=== PATIENT | female | born 1970 | race Caucasian/White ===

== ENCOUNTER 2017-02-17 21:20 | Emergency (ER) ==
[2017-02-17 21:37] VITALS: BP 155/78; TEMP 98.7; BMI 34.7
[2017-02-17] MEDS ORDERED: DEXTROSE 5%-NS IV SOLUTION 1,000 ML IV STA (21:47)
--- NOTE | 2017-02-18 01:39 | ED.PDOC ---
General ED Provider: Dr. RAMA JORDAN-ER Chief Complaint: Diabetes Stated Complaint: i took too much insulin Time Seen by Physician: 21:25 Mode of Arrival: Walk-In Information Source: Patient Exam Limitations: No limitations Primary Care Provider: RAMA JORDAN Nursing and Triage Documentation Reviewed and Agree: Yes Endocrine Complaint Exam - Diabetic Complication Complaint/Exam Onset/Duration: just now Symptoms Are: Resolved Initial Severity: Mild Current Severity: None Character: Alert Aggravating: Reports: None Alleviating: Reports: None Associated Signs and Symptoms: Denies: Decreased LOC, Polydipsia, Polyuria, Polyphagia, Weight loss, Abdominal pain, Nausea, Vomiting, Fever, Diaphoresis, Fruity breath Related History: Reports: DM 2, Insulin requiring, Controlled Cardiac Risk Factors: Reports: DM, Hypertension, Elevated lipids CVA Risk Factors: Reports: DM, Hypertension Serious Bacterial Infection Risk Factors: Reports: None Acetone on Breath: No Dry Mucous Membranes: No Kussmaul Respirations: No Glascow Coma Scale (see protocol): 15 Meningeal Signs: No Focal Weakness: None Focal Sensory Loss: None Gait: Normal Nystagmus Present: No Gag Reflex Present: Yes Finger to Nose: Normal Romberg Test Positive: No Babinski Sign: Negative Right, Negative Left Heel to Toe Normal: Yes Differential Diagnoses: Hypoglycemia Review of Systems - Review Of Systems Constitutional: Reports: No symptoms Eyes: Reports: No symptoms Ears, Nose, Mouth, Throat: Reports: No symptoms Respiratory: Reports: No symptoms Cardiac: Reports: No symptoms GI: Reports: No symptoms : Reports: No symptoms Musculoskeletal: Reports: No symptoms Skin: Reports: No symptoms Neurological: Reports: No symptoms Endocrine: Reports: No symptoms Hematologic/Lymphatic: Reports: No symptoms All Other Systems: Reviewed and Negative Past Medical History - Past Medical History Previously Healthy: Yes Endocrine: Reports: DM 2 Cardiovascular: Reports: Hypertension Respiratory: Reports: None Hematological: Reports: None Gastrointestinal: Reports: None Genitourinary: Reports: None Neuro/Psych: Reports: None Musculoskeletal: Reports: None Cancer: Reports: None Last Menstrual Period: PRESENTLY - Surgical History General Surgical History: Reports: Tubal ligation, Cholecystectomy - Family History Family History: Reports: Unknown - Social History Smoking Status: Current every day smoker, Heavy tobacco smoker Hx Substance Use: No Alcohol Screening: None - Immunizations Tetanus Shot up to Date: Yes Physical Exam - Physical Exam Appearance: Well-appearing, No pain distress, Well-nourished Eyes: SHRAVAN, EOMI, Conjunctiva clear ENT: Ears normal, Nose normal, Oropharynx normal Neck: Supple Respiratory: Airway patent, Breath sounds clear, Breath sounds equal, Respirations nonlabored Cardiovascular: RRR, Pulses normal, No rub, No murmur GI/: Soft, Nontender, No masses, Bowel sounds normal, No Organomegaly Musculoskeletal: Normal strength, ROM intact, No edema, No calf tenderness Skin: Warm Neurological: Sensation intact, Motor intact, Reflexes intact, Cranial nerves intact, Alert, Oriented Psychiatric: Affect appropriate, Mood appropriate Re-Evaluation - Re-Evaluation Time of Re-Evaluation: 01:39 Status: Unchanged Vital Signs Stable: Yes Pain Level: o Appearance: NAD Lungs: Clear Skin: Warm and Dry Neuro: Alert and Oriented X3 CV: RRR Additional Comments: fsbs remain stable Critical Care Note - Critical Care Note Total Time (mins): 0 Course - Course Orders, Labs, Meds: Orders Category Date Time Status ACCUCHECK (ED) [ED ACCUCHECK ASSESSMENT] Q1HR EMERGENCY 02/17/17 21:47 Active IV [ED IV/MEDIPORT/POWERPORT] .ONCE EMERGENCY 02/17/17 21:55 Active 0.9 % Sodium Chloride [Saline Flush] MEDS 02/17/17 21:55 Ordered 1 syr IVF PRN PRN Dextrose 5 % and 0.9 % NaCl [Dextrose 5%-Ns IV Solution MEDS 02/17/17 21:47 Active ] 1,000 ml IV 100 mls/hr Medications Generic Name Dose Route Start Last Admin Trade Name Freq PRN Reason Stop Dose Admin Dextrose/Sodium Chloride 1,000 mls @ 100 mls/hr 02/17/17 21:47 02/17/17 21:56 Dextrose 5%-Ns Iv Solution IV 02/18/17 07:46 100 mls/hr .Q10H STA Administration Sodium Chloride 1 syr 02/17/17 21:55 02/17/17 21:58 Saline Flush IVF 1 syr PRN PRN Administration To flush IV Vital Signs: Temp Pulse Resp BP Pulse Ox 02/17/17 21:21 98.7 F 111 H 20 155/78 H 97 Departure - Departure Time of Disposition: 01:40 Disposition: HOME SELF-CARE Discharge Problem: Hypoglycemia Instructions: Hypoglycemia in a Person with Diabetes (ED) Condition: Good Pt referred to PMD for follow-up: Yes Additional Instructions: continhue to monitor bs and call if any problmes Allergies/Adverse Reactions: Allergies No Known Allergies Allergy (Verified 02/17/17 21:35) Home Medications: Ambulatory Orders Gabapentin 200 mg PO TID 01/17/14 Insulin Glargine,Hum.rec.anlog [Lantus] 50 units SQ BID 01/17/14 Etodolac [Lodine] 400 mg PO BID 02/16/14 Carvedilol [Coreg] 3.125 mg PO BID 09/23/15 Hydrocodone Bit/Acetaminophen [[place] 7.5-325] 1 tab PO TID 09/23/15 Lisinopril 10 mg PO DAILY 09/23/15 Sertraline HCl [Zoloft] 100 mg PO DAILY 09/23/15 Alprazolam [Xanax] 1 mg PO DAILY 02/17/17 Insulin Regular, Human [Humulin R] 1 unit SQ DIRECTED 02/17/17 Disposition Discussed With: Patient, Family
== END 2017-02-18 01:51 | disposition home or self-care (01) ==
LOC: ED 21:20
DX: E09.649 Drug or chemical induced diabetes mellitus with hypoglycemia without coma (principal); Z79.4 Long term (current) use of insulin; I10 Essential (primary) hypertension; E78.5 Hyperlipidemia, unspecified; F17.210 Nicotine dependence, cigarettes, uncomplicated
CPT/HCPCS: 82962; 96360; 96361; 99283

== ENCOUNTER 2018-02-02 11:59 | Outpatient (CLI) | END 2018-02-02 12:00 | disposition short-term general hospital (02) | LOC: AMBL 11:59 | PROVIDERS: ATTEND Internal Medicine | DX: R07.9 Chest pain, unspecified (principal); R11.0 Nausea ==

== ENCOUNTER 2018-03-03 23:05 | Emergency (ER) ==
[2018-03-03 23:21] VITALS: BMI 37.0
[2018-03-03] MEDS ORDERED: SODIUM CHLORIDE 1,000 ML IV STA (23:57)
[2018-03-04 00:46] VITALS: BP 110/71; TEMP 98.1
[2018-03-04] MEDS ORDERED: NORCO 7.5-325 PO STA (01:28)
--- NOTE | 2018-03-04 02:01 | CT ---
EXAM: CT scan cervical spine HISTORY: Fall COMPARISON: None. FINDINGS: Contiguous axial images obtained through the cervical spine utilizing 2-mm collimation. S agittal and coronal reconstructions were imaged and reviewed.. There is loss of the normal cervical lordosis suggesting paraspinal muscle spasm. The vertebral bodies are normal in height alignment. T he facet joints are intact. There is no acute fracture or dislocation. IMPRESSION: Loss of the normal cervical lordosis suggesting paraspinal muscle spasm. No acute findings
--- NOTE | 2018-03-04 02:03 | CT ---
EXAM: CT scan facial bones HISTORY: Trauma COMPARISON: None. FINDINGS: Contiguous axial images obtained through the facial bones without contrast utilizing 3-mm collimation. Sagittal and coronal reconstructions were imaged reviewed.. There is left frontal scalp swelling. The orbital structures are intact. Visualized paranasal sinuses are clear. There is dev iation of the nasal septum to the right of midline.. The mandible and maxilla are edentulous. There is no evidence of a mandibular fracture. IMPRESSION: Mild left frontal scalp swelling. No acute findings.
--- NOTE | 2018-03-04 02:04 | CT ---
EXAM: CT head without contrast. HISTORY: Trauma. PROCEDURE: Contiguous axial CT images of the head without contrast with coronal and sagittal reforma ts. FINDINGS: There is an acute right parietal epidural hematoma measuring up to 5 mm transverse. The fabiola tricles and basal cisterns are normal in size and configuration. No evidence of mass or midline shif t. No evidence of large vessel infarct. The paranasal sinuses and mastoid air cells are well-aerate d and normal in appearance. No skull fracture. Impression: Right parietal epidural hematoma measuring up to 5 mm transverse. Recommend stat neurosu rgical consult. Critical result: Results discussed with the patient's ER physician Dr. Diaz on 03/04/2018 at 1:56 a.m.
--- NOTE | 2018-03-04 02:05 | ED.PDOC ---
General ED Provider: Dr. RAMA JORDAN-ER Chief Complaint: Fall Stated Complaint: i fell 2 days ago Time Seen by Physician: 23:10 Mode of Arrival: Wheelchair Information Source: Patient Exam Limitations: No limitations Primary Care Provider: RAMA JORDAN Nursing and Triage Documentation Reviewed and Agree: Yes Reviewed sepsis parameters & appropriate labs ordered?: Yes System Inflammatory Response Syndrome: Not Applicable Sepsis Protocol: For patient's 13 years and over: Temp is 96.8 and below OR 101 and greater Pulse >90 BPM Resp >20/minute Acutely Altered Mental Status Are patient's symptoms suggestive of a new infection, such as: -Pneumonia -Skin, Soft Tissue -Endocarditis -UTI -Bone, Joint Infection -Implantable Device -Acute Abdominal Infection -Wound Infection -Meningitis -Blood Stream Catheter Infection -Unknown Trauma/Injury Complaint Exam - Trauma Complaint/Exam Location of Pain or Injury: Reports: Head, LUE Mechanism of Injury: Reports: Fall Symptoms Are: Still present Timing of Treatment: Immediate Initial Severity: Mild Current Severity: Mild Character: Reports: Dull Aggravating: Reports: Movement, Weight-bearing, Ambulation Alleviating: Reports: None Associated Signs and Symptoms: Reports: Bruising, Swelling : No Penetrating Injury Risk Factors: Reports: None Related Surgical History: Reports: None Nexus Low Risk Criteria: No post-midline CS tender Immobilization Removed Post Exam: No Compartment Syndrome Risk Factors: Present: Pain Skin Findings: Present: Normal findings, Tenderness Differential Diagnoses: Contusions, Fracture Review of Systems - Review Of Systems Constitutional: Reports: No symptoms Eyes: Reports: No symptoms Ears, Nose, Mouth, Throat: Reports: No symptoms Respiratory: Reports: No symptoms Cardiac: Reports: No symptoms GI: Reports: No symptoms : Reports: No symptoms Musculoskeletal: Reports: No symptoms Skin: Reports: No symptoms Neurological: Reports: No symptoms Endocrine: Reports: No symptoms Hematologic/Lymphatic: Reports: No symptoms All Other Systems: Reviewed and Negative Past Medical History - Past Medical History Previously Healthy: Yes Endocrine: Reports: DM 2 Cardiovascular: Reports: Hypertension Respiratory: Reports: None Hematological: Reports: None Gastrointestinal: Reports: None Genitourinary: Reports: None Neuro/Psych: Reports: None Musculoskeletal: Reports: None Cancer: Reports: None Last Menstrual Period: DECEMBER 2017 - Surgical History General Surgical History: Reports: Tubal ligation, Cholecystectomy - Family History Family History: Reports: Unknown - Social History Smoking Status: Current every day smoker, Heavy tobacco smoker Hx Substance Use: No Alcohol Screening: None Lives: With family - Immunizations Tetanus Shot up to Date: Yes Physical Exam - Physical Exam Appearance: Well-appearing Eyes: SHRAVAN, EOMI, Conjunctiva clear ENT: Ears normal, Nose normal, Oropharynx normal Respiratory: Airway patent Cardiovascular: RRR, Pulses normal, No rub, No murmur GI/: Soft, Nontender, No masses, Bowel sounds normal, No Organomegaly Musculoskeletal: Limited ROM Skin: Warm, Dry, Normal color Neurological: Sensation intact, Motor intact, Reflexes intact, Cranial nerves intact, Alert, Oriented Psychiatric: Affect appropriate, Mood appropriate, Anxious Interpretation - Radiology Interpretation Radiology Interpretation By: Radiologist Radiology Results: Positive Exam Interpreted: CT Scan Physician Notification - Case Discussed Physician Notified: dr kline Time of Notification: 02:15 Time of Notification: 02:36 Endorsed To/Discussed With: dr hines--[facility] Critical Care Note - Critical Care Note Total Time (mins): 0 Course - Course Hematology/Chemistry: 03/03/18 00:05 03/03/18 00:05 Orders, Labs, Meds: Lab Review 03/03/18 03/03/18 00:05 00:05 WBC 12.78 H RBC 3.76 L Hgb 11.3 L Hct 33.3 L MCV 88.6 MCH 30.1 MCHC 33.9 RDW Coeff of Deepa 14.2 Plt Count 172 Immature Gran % (Auto) 0.3 Neut % (Auto) 70.1 Lymph % (Auto) 20.3 [place] % (Auto) 6.7 Eos % (Auto) 2.1 Baso % (Auto) 0.5 Immature Gran # (Auto) 0.0 Neut # (Auto) 9.0 H Lymph # (Auto) 2.6 [place] # (Auto) 0.9 Eos # (Auto) 0.3 Baso # (Auto) 0.1 Sodium 137 Potassium 3.7 Chloride 103 Carbon Dioxide 24 Anion Gap 13.7 BUN 21 H Creatinine 0.71 Estimated GFR (MDRD) 88.00 BUN/Creatinine Ratio 29.57 Glucose 134 H Calcium 9.0 Total Bilirubin 0.4 AST 7 L ALT < 6 L Alkaline Phosphatase 86 Total Protein 7.0 Albumin 3.2 L Globulin 3.8 Albumin/Globulin Ratio 0.84 Amylase 27 Lipase 5 L Orders Category Date Time Status NPO REMINDER: IMAGING ONCE CARE 03/03/18 23:57 Completed TRANSFER TO OUTSIDE FACILITY .TO [facility] CARE 03/04/18 02:13 Inactive (ANA OR) WRITE TRANSFER/SBAR NOTE ONCE CARE 03/04/18 02:13 Inactive DISCHARGE ASSESSMENT ONCE DISCHARGE 03/04/18 02:13 Inactive WRITE DISCHARGE NOTE ONCE DISCHARGE 03/04/18 02:13 Inactive ED IV/MEDIPORT/POWERPORT .ONCE EMERGENCY 03/03/18 23:57 Active AMYLASE Stat LAB 03/03/18 00:05 Completed CBC W/ AUTO DIFF Stat LAB 03/03/18 00:05 Completed COMPREHENSIVE METABOLIC PANEL Stat LAB 03/03/18 00:05 Completed LIPASE Stat LAB 03/03/18 00:05 Completed 0.9 % Sodium Chloride [Saline Flush] MEDS 03/03/18 23:57 Ordered 1 syr IVF PRN PRN Hydrocodone Bit/Acetaminophen [[place] 7.5-325] MEDS 03/04/18 01:28 Discontinued 1 tab PO ONCE STA Sodium Chloride 0.9% [Sodium Chloride] 1,000 ml MEDS 03/03/18 23:57 Active IV 100 mls/hr CT ABDOMEN/PELVIS W CONTRAST Stat RADS 03/04/18 00:[address] CERVICAL SPINE W/O CONTRAST Stat RADS 03/04/18 00:[address] CHEST W/O CONTRAST Stat RADS 03/04/18 00:[address] HEAD W/O CONTRAST Stat RADS 03/04/18 00:[address] MAXILLOFACIAL W/O CONTRAST Stat RADS 03/04/18 00:[address] SHOULDER LEFT W/O CONTRAST Stat RADS 03/04/18 00:07 Completed Medications Generic Name Dose Route Start Last Admin Trade Name Freq PRN Reason Stop Dose Admin Sodium Chloride 1,000 mls @ 100 mls/hr 03/03/18 23:57 03/04/18 01:23 Sodium Chloride IV 03/04/18 09:56 100 mls/hr .Q10H STA Administration Sodium Chloride 1 syr 03/03/18 23:57 03/04/18 00:26 Saline Flush IVF 1 syr PRN PRN Administration To flush IV Discontinued Medications Generic Name Dose Route Start Last Admin Trade Name Freq PRN Reason Stop Dose Admin Hydrocodone Bitart/Acetaminophen 1 tab 03/04/18 01:28 03/04/18 01:34 [place] 7.5-325 PO 03/04/18 01:29 1 tab ONCE STA Administration Vital Signs: Temp Pulse Resp BP Pulse Ox 03/04/18 00:30 92 H 20 110/71 92 L 03/03/18 23:06 98.1 F 96 H 20 109/62 93 L Departure - Departure Time of Disposition: 02:12 Disposition: TSF SHORT-TRM HOSP Discharge Problem: Epidural hematoma Splenic laceration Qualifiers: Encounter type: initial encounter Qualified Code(s): S36.039A - Unspecified laceration of spleen, initial encounter Instructions: Hematoma (ED) Condition: Stable Pt referred to PMD for follow-up: Yes IPMP verified?: No Allergies/Adverse Reactions: Allergies No Known Allergies Allergy (Verified 03/03/18 23:22) Home Medications: Ambulatory Orders Gabapentin 400 mg PO TID 01/17/14 Insulin Glargine,Hum.rec.anlog [Lantus] 60 units SQ BID 01/17/14 Etodolac [Lodine] 400 mg PO DAILY 02/16/14 Carvedilol [Coreg] 3.125 mg PO BID 09/23/15 Hydrocodone Bit/Acetaminophen [[place] 7.5-325] 1 tab PO TID 09/23/15 Sertraline HCl [Zoloft] 100 mg PO DAILY 09/23/15 Alprazolam [Xanax] 1 mg PO DAILY 02/17/17 Insulin Regular, Human [Humulin R] 1 unit SQ DIRECTED 02/17/17 Transfer Form Completed: Yes Disposition Discussed With: Patient
--- NOTE | 2018-03-04 02:08 | CT ---
EXAM: CT scan left shoulder HISTORY: Trauma COMPARISON: None. FINDINGS: Contiguous axial images were obtained through the shoulder without contrast utilizing 2-mm collimation. Sagittal and coronal reconstructions were imaged and reviewed. Degenerative changes are noted at the acromioclavicular joint. The glenohumeral joint is intact. The re is no acute fracture or dislocation. IMPRESSION: No acute finding
--- NOTE | 2018-03-04 02:09 | CT ---
EXAM: CT of the chest without contrast. HISTORY: Fall. PROCEDURE: Contiguous axial CT images of the chest without contrast with multiplanar and 3-D reforma ts. FINDINGS: Heart is within normal limits in size. The thoracic aorta and mediastinum are normal in ap pearance. There is minimal bilateral subsegmental atelectasis. No pneumothorax. There is a 3 mm nodu le in the right lung. The bones are intact. Impression: No evidence of acute traumatic injury to the chest. Minimal bilateral atelectasis. 3 mm nodule the right lung. Recommend follow up per Fleischner Society recommendations.
--- NOTE | 2018-03-04 02:19 | CT ---
EXAM: CT scan abdomen pelvis with contrast HISTORY: Fall COMPARISON: CT scan abdomen pelvis 11/26/2012 FINDINGS: Contiguous axial images obtained from lung bases to the symphysis pubis following uneventf ul administration intravenous contrast utilizing 3-mm collimation. Sagittal and coronal reconstructi ons were imaged and reviewed. There is mild atelectasis at the left lung base.. The right lobe of th e liver is enlarged which may represent normal variant. There has been prior cholecystectomy. The p ancreas adrenal glands have normal enhanced CT appearance. The kidneys excrete contrast normal fashi on bilaterally. There is a splenic laceration noted about the posterior aspect of the spleen with mod erate surrounding subcapsular hematoma.. Hemorrhages seen within the left pericolic gutter extending into the dependent pelvis.. There is a septated cystic mass anteriorly inferiorly in the pelvis afia suring 5.9 x 9.9 cm. There is additional cystic mass measuring 4.3 cm seen in the left adnexal regio n. IMPRESSION: Splenic laceration with subcapsular hematoma.. Hemorrhage is also seen in the left paracolic gutter which extends in the pelvis. Enlarged right lobe of liver which may represent normal variant. Cystic adnexal masses within the pelvis which would be better evaluated with ultrasound Prior cholecystectomy
== END 2018-03-04 03:35 | disposition short-term general hospital (02) ==
LOC: ED 23:05
DX: S06.4X0A Epidural hemorrhage without loss of consciousness, initial encounter (principal); S36.039A Unspecified laceration of spleen, initial encounter; S49.92XA Unspecified injury of left shoulder and upper arm, initial encounter; W19.XXXA Unspecified fall, initial encounter; E11.9 Type 2 diabetes mellitus without complications; I10 Essential (primary) hypertension; F17.210 Nicotine dependence, cigarettes, uncomplicated
CPT/HCPCS: 36415; 80053; 82150; 83690; 85025; 96361; 99285